=== PATIENT | female | born 1955 | race Caucasian/White ===

== ENCOUNTER 2018-09-22 05:44 | Day surgery (SDC) | payer MEDICARE ==
[2018-09-22] MEDS ORDERED: Lactated Ringers 1,000 ML IV SCH (06:30)
[2018-09-22] MEDS ORDERED: DIPRIVAN 200 MG/20 ML IV ONE ×2 (07:25→07:40)
[2018-09-22 09:32] VITALS: BP 142/84; PULSE 85; O2SAT 98
--- NOTE | 2018-09-22 09:51 | OP ---
SURGERY DATE/TIME: 09/22/2018 0727 PREOPERATIVE DIAGNOSIS: History of colon polyps and diarrhea. POSTOPERATIVE DIAGNOSIS: Normal colon. PROCEDURE: Colonoscopy. SURGEON: Dr. Almendarez. ANESTHESIA: MAC. Medications given by anesthesia department. HISTORY: The patient is a 63 year-old white female who presents now for endoscopic evaluation. She reports she has been having diarrhea for the past two years. She previously had colonoscopy with colon polyps removed. The patient was felt the need to have re-investigation. She was appraised of the risks of the procedure including the risk of perforation, phlebitis, untoward reaction to medication, bleeding and missed lesions. The patient verbalized her understanding and desired to have the procedure performed. DESCRIPTION OF PROCEDURE: The patient was given the medications by the anesthesia department. She had continuous pulse oximetry, ECG monitoring, intermittent blood pressure monitoring and tidal CO2 monitoring during the examination. She was placed in the left lateral decubitus position. A digital rectal examination was performed and revealed normal anal sphincter tone and no masses. The flexible Olympus pediatric colonoscope was used to intubate the rectum. A view of the colon was developed sequentially to the cecum. Upon insertion and withdrawal, including a retroflex view in the rectum, no mucosal lesions were encountered. The scope was removed from the patient who tolerated the procedure well and was sent back to OP recovery in good condition. The prep was noted to be fair.
== END 2018-09-22 09:15 | disposition home or self-care (01) ==
LOC: SDC 05:44
PROVIDERS: ATTEND Family Medicine
DX: Z09 Encounter for follow-up examination after completed treatment for conditions other than malignant neoplasm (principal); R19.7 Diarrhea, unspecified; Z86.010 Personal history of colon polyps
CPT/HCPCS: J2704